=== PATIENT | female | born 2000 | race Caucasian/White ===

== ENCOUNTER 2024-08-29 11:26 | Emergency (ER) | payer BC ==
[~2024-08-29] VITALS: Ht 160 cm; Wt 70.1 kg
[2024-08-29 13:12] LABS: BASO % 0.6 % (0.0-1.0); EOS # 0.1 10^3/uL (0.0-0.5); EOS % 1.2 % (0.0-3.0); HEMATOCRIT 38.5 % (36.0-47.0); HEMOGLOBIN 11.7 g/dl (12.0-15.5); LYMPH # 1.7 10^3/uL (1.5-5.0); LYMPH % 33.5 % (24.0-44.0); MEAN CORPUSCULAR HEMOGLOBIN 20.1 pg (27.0-33.0); MEAN CORPUSCULAR HGB CONC 30.4 g/dl (32.0-36.5); MEAN CORPUSCULAR VOLUME 66.2 fl (80.0-96.0); MONO # 0.5 10^3/uL (0.0-0.8); MONO % 10.7 % (2.0-8.0); NEUTROPHILS # 2.7 10^3/uL (1.5-8.5); NEUTROPHILS % 53.8 % (36.0-66.0); PLATELET COUNT, AUTOMATED 317 10^3/uL (150-450); RED BLOOD COUNT 5.82 10^6/uL (4.00-5.40); WHITE BLOOD COUNT 5.1 10^3/uL (4.0-10.0)
[2024-08-29 13:36] LABS: LIPASE 52 U/L (12-53)
[2024-08-29 13:38] LABS: ALBUMIN 4.3 G/DL (3.2-5.2); ALKALINE PHOSPHATASE 52 U/L (35-104); ALT/SGPT 22 U/L (7.0-40); AST/SGOT 15 U/L (<34); BILIRUBIN,DIRECT 0.3 MG/DL (<0.4); BILIRUBIN,TOTAL 0.8 MG/DL (0.3-1.2); TOTAL PROTEIN 7.8 G/DL (5.7-8.2)
[2024-08-29 13:51] LABS: HCG, SERUM QUALITATIVE NEGATIVE (NEGATIVE)
[2024-08-29] MEDS: PANTOPRAZOLE 40MG VIAL IV ONE (14:02)
[2024-08-29] MEDS: GASTROGRAFIN SOLUTION 30ML PO SCH (14:02)
[2024-08-29] MEDS ORDERED: ISOVUE-370 76% 100ML VIAL As Ordered ONE (15:29)
[2024-08-29] MEDS ORDERED: PROT1TAB2 PO (16:06)
[2024-08-29 16:17] VITALS: BP 106/65; TEMP 97.5; O2SAT 98
== END 2024-08-29 16:15 | disposition home or self-care (01) ==
LOC: M ED 11:26
DX: R11.2 Nausea with vomiting, unspecified (principal)
CPT/HCPCS: 74177; 80047; 80076; 83690; 84703; 85025; 96374; 99284; J2470; Q9963; Q9967